=== PATIENT | female | born 1940 | race Caucasian/White ===

== ENCOUNTER 2024-03-09 02:06 | Day surgery (SDC) | payer MEDICARE, BC ==
[~2024-03-09 02:06] MED LIST: ALBU90OI INH; AMOX500 PO; AMPI500 PO; CALCAVITD PO; CHLO2; DOCU100 PO; ERYTHROMYCIN PO; HYDMOR2 PO; IRON325 MG PO; MECL25 PO; MELA3 PO; MULVITMIND PO; NAPR220 PO; OMEP20ER; ONDA4ODT MM; OXYACE5T PO; PRAV20 PO; PRED5; WARF4 PO
[2024-03-09 09:24] VITALS: BP 184/43
[2024-03-09 09:54] LABS: BASOPHILS ABSOLUTE AUTO 0.06 K/mm3 (0.00-0.23); BASOPHILS PERCENT AUTO 1 % (0-2); EOSINOPHILS ABSOLUTE AUTO 0.26 K/mm3 (0.00-0.68); EOSINOPHILS PERCENT AUTO 5 % (0-6); Hematocrit 37.1 % (33.0-51.0); Hemoglobin 12.5 g/dL (11.5-16.0); IMMATURE GRAN ABSOLUTE AUTO 0.01 K/mm3 (0.00-0.10); IMMATURE GRAN PERCENT AUTO 0 % (0-1); LYMPHOCYTES PERCENT AUTO 30 % (21-46); MONOCYTES ABSOLUTE AUTO 0.62 K/mm3 (0.16-1.47); MONOCYTES PERCENT AUTO 12 % (4-13); Mean Corpuscular HGB 29.4 pg (26.0-34.0); Mean Corpuscular HGB Conc 33.7 g/dL (31.5-36.5); Mean Corpuscular Volume 87 fL (80-100); NEUTROPHILS ABSOLUTE AUTO 2.72 K/mm3 (1.96-9.15); NEUTROPHILS PERCENT AUTO 52 % (41-73); Platelet Count 213 K/mm3 (150-400); RDW Standard Deviation 44.8 fL (35.1-46.3); Red Blood Cell Count 4.25 M/mm3 (3.80-5.20); White Blood Cell Count 5.27 K/mm3 (4.00-11.30)
[2024-03-09] MEDS ORDERED: LEVSOD100 PO (09:59)
[2024-03-09] MEDS ORDERED: LISI20 PO (10:00)
[2024-03-09 10:17] LABS: Albumin, Blood 3.6 g/dL (3.4-5.0); Albumin/Globulin Ratio 1.1 (0.8-1.8); Bilirubin, Total 0.6 mg/dL (0.1-1.0); Bun/Creatinine Ratio 26.5 (12.0-20.0); Calcium, Blood 8.9 mg/dL (8.5-10.1); Creatinine, Blood 0.83 mg/dL (0.40-1.00); Globulin, Blood 3.3 g/dL (2.2-4.0); Potassium, Blood 4.1 mmol/L (3.5-5.5); Total Protein, Blood 6.9 g/dL (6.4-8.2)
[2024-03-12 10:58] LABS: ALBUMIN 3.69 g/dL (3.75-5.01); ALPHA 1 GLOBULIN 0.26 g/dL (0.19-0.46); ALPHA 2 GLOBULIN 0.94 g/dL (0.48-1.05); GAMMA 0.81 g/dL (0.62-1.51); IMMUNOFIXATION IFE Done; IMMUNOGLOBULIN A 48 mg/dL (68-408); IMMUNOGLOBULIN G 794 mg/dL (768-1632); IMMUNOGLOBULIN M 13 mg/dL (35-263); KAPPA/LAMBDA FLC RATIO 1.49 (0.26-1.65); LAMBDA QNT FREE LIGHT CHAINS 6.52 mg/L (5.71-26.30); TOTAL PROTEIN, SERUM 6.5 g/dL (6.3-8.2)
== END 2024-03-09 09:33 | disposition home or self-care (01) ==
LOC: ATC 02:06
PROVIDERS: Internal Medicine Hematology & Oncology
DX: C88.0 Waldenstrom macroglobulinemia (principal); D80.1 Nonfamilial hypogammaglobulinemia; E78.00 Pure hypercholesterolemia, unspecified; E03.9 Hypothyroidism, unspecified; Z87.891 Personal history of nicotine dependence; Z88.5 Allergy status to narcotic agent
CPT/HCPCS: 36591; 80053; 82784; 83521; 84155; 84165; 85025; 86334; J1642

== ENCOUNTER 2024-03-22 01:51 | Day surgery (SDC) | payer MEDICARE, BC ==
[~2024-03-22 01:51] MED LIST changes: +LEVSOD100 PO; +LISI20 PO
[2024-03-22 14:30] VITALS: BP 139/58
[2024-03-22 15:45] LABS: BASOPHILS ABSOLUTE AUTO 0.06 K/mm3 (0.00-0.23); BASOPHILS PERCENT AUTO 1 % (0-2); EOSINOPHILS ABSOLUTE AUTO 0.11 K/mm3 (0.00-0.68); EOSINOPHILS PERCENT AUTO 2 % (0-6); Hematocrit 35.7 % (33.0-51.0); Hemoglobin 12.1 g/dL (11.5-16.0); IMMATURE GRAN ABSOLUTE AUTO 0.02 K/mm3 (0.00-0.10); IMMATURE GRAN PERCENT AUTO 0 % (0-1); LYMPHOCYTES ABSOLUTE AUTO 1.79 K/mm3 (0.84-5.20); LYMPHOCYTES PERCENT AUTO 30 % (21-46); MONOCYTES ABSOLUTE AUTO 0.55 K/mm3 (0.16-1.47); MONOCYTES PERCENT AUTO 9 % (4-13); Mean Corpuscular HGB 29.6 pg (26.0-34.0); Mean Corpuscular HGB Conc 33.9 g/dL (31.5-36.5); Mean Corpuscular Volume 87 fL (80-100); Mean Platelet Volume 11.7 fL (9.1-12.4); NEUTROPHILS ABSOLUTE AUTO 3.49 K/mm3 (1.96-9.15); NEUTROPHILS PERCENT AUTO 58 % (41-73); Platelet Count 211 K/mm3 (150-400); RDW Coefficient Variation 14.2 % (11.7-14.2); RDW Standard Deviation 45.3 fL (35.1-46.3); Red Blood Cell Count 4.09 M/mm3 (3.80-5.20); White Blood Cell Count 6.02 K/mm3 (4.00-11.30)
[2024-03-22 15:59] LABS: Albumin, Blood 3.7 g/dL (3.4-5.0); Albumin/Globulin Ratio 1.1 (0.8-1.8); Bilirubin, Total 0.7 mg/dL (0.1-1.0); Calcium, Blood 9.3 mg/dL (8.5-10.1); Creatinine, Blood 0.84 mg/dL (0.40-1.00); Globulin, Blood 3.5 g/dL (2.2-4.0); Potassium, Blood 3.5 mmol/L (3.5-5.5); Total Protein, Blood 7.2 g/dL (6.4-8.2)
[2024-03-24 10:09] LABS: KAPPA QNT FREE LIGHT CHAINS 6.35 mg/L (3.30-19.40); KAPPA/LAMBDA FREE LIGHT CH RAT 1.6 (0.26-1.65); LAMBDA QNT FREE LIGHT CHAINS 3.98 mg/L (5.71-26.30)
== END 2024-03-22 14:40 | disposition home or self-care (01) ==
LOC: ATC 01:51
PROVIDERS: Nurse Practitioner
DX: C88.0 Waldenstrom macroglobulinemia (principal); E03.9 Hypothyroidism, unspecified; E78.00 Pure hypercholesterolemia, unspecified; Z87.891 Personal history of nicotine dependence; Z79.890 Hormone replacement therapy; Z79.899 Other long term (current) drug therapy; Z88.5 Allergy status to narcotic agent; Z88.8 Allergy status to other drugs, medicaments and biological substances
CPT/HCPCS: 36591; 80053; 83521; 85025; J1642